=== PATIENT | female | born 1980 | race Caucasian/White ===

== ENCOUNTER 2016-03-09 16:48 | Emergency (ER) | payer OTHER ==
[2016-03-09] MEDS ORDERED: Ketorolac INJ* 60 MG/2 ML VIAL IM ONE (17:39)
[2016-03-09] MEDS ORDERED: Cyclobenzaprine TAB* 10 MG PO ONE ×2 (17:39→20:54)
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
[2016-03-09] MEDS ORDERED: traMADol TAB* 50 MG PO ONE (19:01)
--- NOTE | 2016-03-09 19:18 | RAD ---
Indication: Back pain. 5 views of lumbar spine demonstrate vertebral bodies to be normal in height. Disc spaces all well-preserved. Pedicles appear intact. IMPRESSION: No fracture of the lumbar spine is noted.
[2016-03-09] MEDS ORDERED: oxyCODONE/Acetamin 5/325 MG* TAB PO ONE ×2 (19:51→20:54)
[2016-03-09 21:22] VITALS: BP 119/64
== END 2016-03-09 21:20 | disposition home or self-care (01) ==
LOC: ED 16:48
DX: M54.30 Sciatica, unspecified side (principal); M54.5 Low back pain; R20.9 Unspecified disturbances of skin sensation; M25.562 Pain in left knee
CPT/HCPCS: 72110; 96372; 99283; A9270-GY; J1885

== ENCOUNTER 2016-03-11 12:22 | Inpatient (IN) | payer OTHER ==
[2016-03-11] MEDS ORDERED: HYDROmorphone INJ* 1 MG/ML CARPUJECT SYRINGE IM ONE (14:44)
[2016-03-11] MEDS ORDERED: Diazepam TAB(*) 5 MG PO ONE (14:46)
[2016-03-11] MEDS ORDERED: HYDROmorphone INJ* 1 MG/ML CARPUJECT SYRINGE IV ONE (16:27)
[2016-03-11] MEDS ORDERED: NS 0.9% 1000 ML* 1,000 ML IV ONE (16:27)
[2016-03-11] MEDS ORDERED: Dexamethasone IV* 4 MG/ML 5 ML VIAL (20 MG) IVPB ONE (16:27)
[2016-03-11] MEDS ORDERED: Diazepam SYRINGE* 5 MG/ML 2 ML SYRINGE (10 MG total) IV ONE (16:31)
--- NOTE | 2016-03-11 16:48 | ED ---
marvin Vaca Timothy, scribed for Shashi Buenrostro MD on 03/11/16 at 1437 . Back Pain - HPI Summary HPI Summary: David German is a 35 yo female presenting to [facility] with 10/10 back pain since 03/06/16. She denies any trauma. She was previously seen in the ED on 03/09/16, and saw her primary care provider yesterday, both of whom recommended PT as Tx. The drugs they prescribed make her drowsy, but she states they do not decrease the pain. The pain radiates from her left hip down the side of her leg. She states she was lying on her stomach today and shifted positions, which felt like a tearing in her back and caused her left leg to go numb, and she hasn't been able to feel herself urinate, although she is capable of urinating. The numbness stretches to her toes. She also is experiencing muscle spasms. These newer symptoms prompted her presentation to the ED today. She has treated herself with ice. She notes a decrease in BM since 03/09/16. She denies any other Sx. Her Hx includes Chronh's disease. She denies any EtOH or other drug use. - History of Current Complaint Chief Complaint: EDBackInjuryPain Stated Complaint: BACK PAIN Time Seen by Provider: 03/11/16 14:24 Hx Obtained From: Patient Hx Last Menstrual Period: not since before Onset/Duration: Sudden Onset, Lasting Days, Still Present Onset/Duration: Started Days Ago, Worse Since - today Timing: Constant Severity Initially: Moderate Severity Currently: Moderate Pain Intensity: 10 Pain Scale Used: 0-10 Numeric - Allergies/Home Medications Allergies/Adverse Reactions: Allergies Allergy/AdvReac Type Severity Reaction Status Date / Time No Known Allergies Allergy Verified 11/28/12 10:31 PMH/Surg Hx/FS Hx/Imm Hx Endocrine/Hematology History: Denies: Hx Diabetes, Hx Thyroid Disease Cardiovascular History: Denies: Hx Hypertension Respiratory History: Denies: Hx Asthma, Hx Chronic Obstructive Pulmonary Disease (COPD) GI History: Reports: Hx Crohn's Disease Denies: Hx Ulcer - Surgical History Surgery Procedure, Year, and Place: x1. Laparscopic surg Infectious Disease History: Denies: Hx Hepatitis, Hx Human Immunodeficiency Virus (HIV), Traveled Outside the [place] in Last 30 Days - Family History Known Family History: Positive: Cardiac Disease, Hypertension, Diabetes, Other - cancer - Social History Lives: With Family Alcohol Use: None Substance Use Type: Reports: None Smoking Status (MU): Never Smoked Tobacco Review of Systems Constitutional: Negative Eyes: Negative ENT: Negative Cardiovascular: Negative Respiratory: Negative Positive: Other - decreased BM Genitourinary: Negative Positive: Other - right hip pain radiating down leg Skin: Negative Positive: Numbness - left leg Psychological: Normal All Other Systems Reviewed And Are Negative: Yes Physical Exam - Summary Physical Exam Summary: The patient is well-nourished in mild pain distress and is somewhat uncooperative to examination secondary to pain The skin is warm and dry and skin color reflects adequate perfusion. HEENT: The head is normocephalic and atraumatic. The pupils are equal and reactive. The conjunctivae are clear and without drainage. Nares are patent and without drainage. Mouth reveals moist mucous membranes and the throat is without erythema and exudate. The external left ear is intact, right was not viewed. The left ear canal is patent and without drainage. The left tympanic membrane is intact. Neck is supple with full range of motion and non-tender. There are no carotid bruits. There is no neck vein distension. Respiratory: Chest is non-tender. Lungs are clear to auscultation and breath sounds are symmetrical and equal. Cardiovascular: Hear is regular rate and rhythm. There is no murmur or rub auscultated. There is no peripheral edema and pulses are symmetrical and equal. Abdomen: The abdomen is soft and non-tender. There are normal bowel sounds heard in all four quadrants and there is no organomegaly palpated. Musculoskeletal: There are increased muscle spasms in the lower lumbar spine sachrum on the left. She has good distal pulses. Her Achilles reflex is intact. L5S1 no weakness noted. Neurological: Patient is alert and oriented to person, place and time. The patient has symmetrical motor strength in all four extremities. Cranial nerves are grossly intact. Deep tendon reflexes are symmetrical and equal in all four extremities. Psychiatric: The patient has an appropriate affect and does not exhibit any anxiety or depression. Triage Information Reviewed: Yes Vital Signs On Initial Exam: Initial Vital Signs Resp 16 03/11/16 15:03 Vital Signs Reviewed: Yes Diagnostics - Vital Signs Vital Signs Resp 03/11/16 15:04 22 03/11/16 15:03 16 - Laboratory Lab Statement: Any lab studies that have been ordered have been reviewed, and results considered in the medical decision making process. Re-Evaluation - Re-Evaluation First Eval Re-Evaluation Time: 16:26 Change: Improved Comment: Pt has increased range of motion and is no longer moaning, but claims pain medication has not improved her condition. Back Pain Course/Dx - Course Assessment/Plan: David German is a 35 yo female presenting to [facility] with 10/ 10 back pain extending down her left hip and radiating through her leg, with some numbness. - Diagnoses Differential Diagnosis/HQI/PQRI: Positive: Herniated Disc, Sprain, Other - sciatica Provider Diagnoses: Back pain Discharge - Discharge Plan Condition: Stable Disposition: OTHER Discharge Disposition Comment: signed out to The documentation as recorded by the marvin snell Timothy accurately reflects the service I personally performed and the decisions made by me, Shashi Buenrostro MD.
[2016-03-11 17:04] LABS: Hematocrit 42 % (35-47); Hemoglobin 13.9 g/dl (12.0-16.0); Mean Corpuscular HGB Conc 33 g/dl (31-36); Mean Corpuscular Hemoglobin 31 pg (27-31); Mean Corpuscular Volume 92 fL (80-97); Mean Platelet Volume 8 um3 (7.4-10.4); Red Blood Count 4.55 10^6/ul (4.0-5.4); Red Cell Distribution Width 13 % (10.5-15); White Blood Count 6.5 10^3/ul (3.5-10.8)
[2016-03-11 17:20] LABS: Albumin 4.2 g/dL (3.2-5.2); BUN/Creatinine Ratio 14.3 (8-20); C Reactive Protein 1.15 mg/L (< 5.00); Calcium 9.2 mg/dL (8.6-10.3); EGFR African American 136.7 (>60); EGFR Non-African American 106.3 (>60); Globulin 3.2 g/dL (2-4); Potassium 3.8 mmol/L (3.5-5.0); Total Bilirubin 0.5 mg/dL (0.2-1.0); Total Protein 7.4 g/dL (6.4-8.9)
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
[2016-03-11] MEDS ORDERED: Acetaminophen TAB* 325 MG PO PRN (17:55)
[2016-03-11] MEDS ORDERED: Ketorolac INJ* 30 MG/ML 1 ML VIAL IV PUSH ONE (17:55)
[2016-03-11] MEDS ORDERED: Ondansetron INJ* 2 MG/ML VIAL IV PRN (17:55)
[2016-03-11 18:04] LABS: Erythrocyte Sed Rate 12 mm/Hr (0-14)
[2016-03-11] MEDS ORDERED: HYDROmorphone INJ* 1 MG/ML CARPUJECT SYRINGE IV SLOW PU ONE (18:08)
[2016-03-11 18:37] LABS: Urine Bilirubin Negative (Negative); Urine Glucose Negative (Negative); Urine Nitrite Negative (Negative)
--- NOTE | 2016-03-11 19:09 | RAD ---
INDICATION: Back pain and urinary retention. COMPARISON: Comparison is made with a prior x-ray study of the lumbar spine from March 09, 2016. TECHNIQUE: Axial and sagittal T1 and T2 and coronal T2-weighted images of the lumbar spine were obtained. FINDINGS: The vertebra are in normal alignment. There is a small hyperintense lesion present within the T12 vertebral body on T1 and T2-weighted images which suppresses on the inversion recovery images most consistent with a hemangioma. No other focal osseous abnormalities are seen. At the L5-S1 level there is a small midline and left posterolateral disc protrusion which does not cause mass effect on the thecal sac although does abut and slightly displace the left S1 nerve root in the lateral recess. Neural foramen appear patent on both sides. The remaining intervertebral disc appear to be within normal limits. IMPRESSION: AT THE L5-S1 LEVEL THERE IS A SMALL CENTRAL AND LEFT POSTERIOR LATERAL DISC PROTRUSION WHICH CAUSES MILD MASS EFFECT ON THE LEFT S1 NERVE IN THE LATERAL RECESS.
[2016-03-11] MEDS: oxyCODONE/Acetamin 5/325 MG* TAB PO PRN ×2 (19:32→23:54)
[2016-03-11] MEDS: Cyclobenzaprine TAB* 10 MG PO PRN (19:32)
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
[2016-03-11] MEDS: methylPREDNISolone SOD 40 MG* 1 ML VIAL IV SCH (23:56)
[2016-03-12] MEDS: HYDROmorphone INJ* 1 MG/ML CARPUJECT SYRINGE IV SLOW PU PRN ×4 (03:48→21:01)
[2016-03-12] MEDS: Cyclobenzaprine TAB* 10 MG PO PRN ×2 (03:52→18:39)
[2016-03-12 06:17] LABS: Hematocrit 41 % (35-47); Hemoglobin 13.7 g/dl (12.0-16.0); Mean Corpuscular HGB Conc 33 g/dl (31-36); Mean Corpuscular Hemoglobin 31 pg (27-31); Mean Corpuscular Volume 93 fL (80-97); Mean Platelet Volume 9 um3 (7.4-10.4); Red Blood Count 4.47 10^6/ul (4.0-5.4); Red Cell Distribution Width 13 % (10.5-15); White Blood Count 6.6 10^3/ul (3.5-10.8)
[2016-03-12] MEDS: oxyCODONE/Acetamin 5/325 MG* TAB PO PRN ×4 (06:23→22:35)
[2016-03-12 06:32] LABS: BUN/Creatinine Ratio 14.3 (8-20); Calcium 8.7 mg/dL (8.6-10.3); EGFR African American 156.7 (>60); EGFR Non-African American 121.8 (>60); Potassium 4.1 mmol/L (3.5-5.0)
[2016-03-12] MEDS: Lidocaine PATCH 5%* 1 PATCH TRANSDERM SCH (08:39)
[2016-03-12] MEDS: methylPREDNISolone SOD 40 MG* 1 ML VIAL IV SCH ×2 (10:00→22:34)
--- NOTE | 2016-03-12 12:02 | PN ---
Subjective Date of Service: 03/12/16 Interval History: Patient seen and examined at bedside. Pt states that she continue to have pain in her left leg and weakness. Pt has been able to get up to the [facility] [place] and [place]inate today. Pt states that she is having "spasms" down her left leg. She can not think of an injury to her back, but it has been bothering her for almost a week , she was seem by her chiropractor who adjusted her. Denies fever, chills, shortness of breath, chest discomfort, N/V/D. Reports left LE weakness and numbness. Family History: Unchanged from Admission Social History: Unchanged from Admission Past Medical History: Unchanged from Admission Objective Active Medications: Acetaminophen (Tylenol Tab*) 650 mg PO Q4H PRN Reason: FEVER/PAIN Cyclobenzaprine HCl (Flexeril Tab*) 10 mg PO TID PRN Reason: SPASMS Hydromorphone HCl (Dilaudid Iv*) 1 mg IV SLOW PU Q4H PRN Reason: PAIN Lidocaine (Lidoderm 5% Patch*) 1 patch TRANSDERM Q24HR MABEL Methylprednisolone Sodium Succinate (Solu-Medrol*) 40 mg IV Q12H MABEL Ondansetron HCl (Zofran Inj*) 4 mg IV Q6H PRN Reason: NAUSEA Oxycodone/Acetaminophen (Percocet 5/325 Tab*) 2 tab PO Q4H PRN Reason: PAIN Pharmacy Profile Note (Lidocaine Patch Remove*) 1 note PATCH OFF 2100 MABEL Vital Signs 03/11/16 03/11/16 03/11/16 18:16 19:00 19:06 Temperature 97.7 F 97.7 F Pulse Rate 80 80 Respiratory 19 14 14 Rate Blood Pressure 102/54 102/54 (mmHg) O2 Sat by Pulse 100 100 Oximetry 03/11/16 03/11/16 03/11/16 19:16 19:32 20:32 Temperature 98.1 F Pulse Rate 85 Respiratory 16 16 16 Rate Blood Pressure 94/54 (mmHg) O2 Sat by Pulse 97 Oximetry 03/11/16 03/11/16 03/11/16 21:26 21:32 23:38 Temperature Pulse Rate Respiratory 16 16 Rate Blood Pressure (mmHg) O2 Sat by Pulse 95 Oximetry 03/11/16 03/11/16 03/12/16 23:39 23:54 01:54 Temperature 98.8 F Pulse Rate 92 Respiratory 16 16 16 Rate Blood Pressure 101/56 (mmHg) O2 Sat by Pulse 98 Oximetry 03/12/16 03/12/16 03/12/16 03:48 03:52 04:48 Temperature 98.3 F Pulse Rate 90 Respiratory 16 18 16 Rate Blood Pressure 102/58 (mmHg) O2 Sat by Pulse 97 Oximetry 03/12/16 03/12/16 03/12/16 05:52 06:23 07:16 Temperature 98.0 F Pulse Rate 83 Respiratory 16 16 16 Rate Blood Pressure 93/58 (mmHg) O2 Sat by Pulse 100 Oximetry 03/12/16 03/12/16 03/12/16 11:00 11:05 11:19 Temperature 98.1 F Pulse Rate 82 Respiratory 20 16 16 Rate Blood Pressure 111/64 (mmHg) O2 Sat by Pulse 97 Oximetry Oxygen Devices in Use Now: None Appearance: NAD, laying in bed Eyes: No Scleral Icterus, PERRLA Ears/Nose/Mouth/Throat: NL Teeth, Lips, Gums, Mucous Membranes Moist Neck: NL Appearance and Movements; NL JVP, Trachea Midline Respiratory: Symmetrical Chest Expansion and Respiratory Effort, Clear to Auscultation Cardiovascular: NL Sounds; No Murmurs; No JVD, RRR Abdominal: NL Sounds; No Tenderness; No Distention - Bowel sounds present Extremities: No Edema Skin: No Rash or Ulcers Neurological: Alert and Oriented x 3, - - Weakness to left LE, 1st toe strength intact. Lines/Tubes/Other Access: Clean, Dry and Intact Peripheral IV - site benign Nutrition: Taking PO's Result Diagrams: 03/12/16 06:04 03/12/16 06:04 Assess/Plan/Problems-Billing Assessment: Ms. German is a 35 yo female with PMH significant for Crohn's who presents to the emergency room with complaints of left LE weakness and pain. - Patient Problems (1) Low back pain Code(s): M54.5 - LOW BACK PAIN SNOMED Code(s): 855123506 Comment: - Pt continues to have low back pain with weakness in her left LE - MRI shows - L5-S1 level a small central and left posterior lateral disc protrusion which causes mild mass effect on the left S1 nerve - Neurosurgery consult pending - Continue pain medication, steroids and physical therapy (2) Crohn's disease Code(s): K50.90 - CROHN'S DISEASE, UNSPECIFIED, WITHOUT COMPLICATIONS SNOMED Code(s): 62597468 Comment: - Stable (3) DVT prophylaxis Code(s): OPY4835 - SNOMED Code(s): 305503502 Comment: Continue SCDs (4) Full code status Code(s): Z78.9 - OTHER SPECIFIED HEALTH STATUS SNOMED Code(s): 042110422 Status and Disposition: OBV. Discharge to home when medically stable.
[2016-03-12] MEDS: Lidocaine Patch REMOVE* 1 NOTE MISC PATCH OFF SCH (21:11)
[2016-03-13] MEDS: HYDROmorphone INJ* 1 MG/ML CARPUJECT SYRINGE IV SLOW PU PRN ×3 (04:23→19:20)
[2016-03-13] MEDS: Cyclobenzaprine TAB* 10 MG PO PRN (07:50)
[2016-03-13] MEDS: Lidocaine PATCH 5%* 1 PATCH TRANSDERM SCH (07:54)
--- NOTE | 2016-03-13 07:54 | PN ---
Progress Note - Progress Note SOAP: Subjective: []Complains of pain in left leg with associated numbness and weakness Does feel sensation better Complains of numbness in perineum Objective: []Achiiles reflexes equal No effort to plantar flex or dorsiflex her left foot Minimal effort to flex quads SLR positive on left at 30 degrees Crossed SLR positive Assessment: []MRI shows a very small disc herniation at L5-S1 on the left Plan: []Her symptoms are grossly out of proportion to her radiographic findings. There is nothing to explain her weakness in her left leg I would recommend a lumbar epidural steroid injection for symptomatic relief Surgery would not be indicated at this point Full consult to follow
[2016-03-13] MEDS: methylPREDNISolone TAB* 4 MG PO SCH ×3 (09:09→21:39)
[2016-03-13] MEDS: oxyCODONE/Acetamin 5/325 MG* TAB PO PRN ×2 (09:09→15:48)
[2016-03-13] MEDS ORDERED: Magnesium Hydroxide LIQ* 30 ML UDC PO PRN (10:07)
[2016-03-13] MEDS ORDERED: Polyethylene Glycol 3350* 17 GM PACKET PO PRN (10:07)
--- NOTE | 2016-03-13 10:58 | PN ---
Subjective Date of Service: 03/13/16 Interval History: Patient seen and examined at bedside. Pt states that she continues to have pain in her left buttock and numbness down her left leg. She also reports muscle spasms. Denies fever, chills, shortness of breath, chest discomfort, N/V/D. Pt feels that she has a piriformis tear. Family History: Unchanged from Admission Social History: Unchanged from Admission Past Medical History: Unchanged from Admission Objective Active Medications: Acetaminophen (Tylenol Tab*) 650 mg PO Q4H PRN Reason: FEVER/PAIN Cyclobenzaprine HCl (Flexeril Tab*) 10 mg PO TID PRN Reason: SPASMS Hydromorphone HCl (Dilaudid Iv*) 1 mg IV SLOW PU Q4H PRN Reason: PAIN Lidocaine (Lidoderm 5% Patch*) 1 patch TRANSDERM Q24HR MABEL Magnesium Hydroxide (Milk Of Magnprakash Liq*) 30 ml PO Q6H PRN Reason: CONSTIPATION Methylprednisolone (Medrol Tab*) 4 mg PO TID MABEL Ondansetron HCl (Zofran Inj*) 4 mg IV Q6H PRN Reason: NAUSEA Oxycodone/Acetaminophen (Percocet 5/325 Tab*) 2 tab PO Q4H PRN Reason: PAIN Pharmacy Profile Note (Lidocaine Patch Remove*) 1 note PATCH OFF 2100 MABEL Polyethylene Glycol/Electrolytes (Miralax*) 17 gm PO DAILY PRN Reason: CONSTIPATION Vital Signs 03/12/16 03/12/16 03/13/16 22:35 22:53 00:35 Temperature 97.7 F Pulse Rate 82 Respiratory 16 16 16 Rate Blood Pressure 98/57 (mmHg) O2 Sat by Pulse 99 Oximetry 03/13/16 03/13/16 03/13/16 03:30 04:23 05:23 Temperature 97.9 F Pulse Rate 88 Respiratory 16 18 16 Rate Blood Pressure 102/62 (mmHg) O2 Sat by Pulse 99 Oximetry 03/13/16 03/13/16 03/13/16 07:32 07:50 08:00 Temperature 98.2 F Pulse Rate 75 Respiratory 16 16 16 Rate Blood Pressure 101/61 (mmHg) O2 Sat by Pulse 99 Oximetry Oxygen Devices in Use Now: None Appearance: NAD, laying in bed. Eyes: No Scleral Icterus, PERRLA Ears/Nose/Mouth/Throat: NL Teeth, Lips, Gums, Mucous Membranes Moist Neck: NL Appearance and Movements; NL JVP, Trachea Midline Respiratory: Symmetrical Chest Expansion and Respiratory Effort, Clear to Auscultation Cardiovascular: NL Sounds; No Murmurs; No JVD, RRR Abdominal: NL Sounds; No Tenderness; No Distention Extremities: No Edema Skin: No Rash or Ulcers Neurological: Alert and Oriented x 3, - - Unable to dorsi and plantar flex left foot, able to move left 1st toe Lines/Tubes/Other Access: Clean, Dry and Intact Peripheral IV - site benign Nutrition: Taking PO's Result Diagrams: 03/12/16 06:04 03/12/16 06:04 Assess/Plan/Problems-Billing Assessment: Ms. German is a 35 yo female with PMH significant for Crohn's who presents to the emergency room with complaints of left LE weakness and pain. - Patient Problems (1) Low back pain Code(s): M54.5 - LOW BACK PAIN SNOMED Code(s): 188485887 Comment: - Pt continues to have low back pain with weakness in her left LE - MRI shows - L5-S1 level a small central and left posterior lateral disc protrusion which causes mild mass effect on the left S1 nerve - Neurosurgery consult, appreciate input. Pt doesn't need surgery at this time - Continue pain medication and steroids - Anesthesia consult pending (2) Crohn's disease Code(s): K50.90 - CROHN'S DISEASE, UNSPECIFIED, WITHOUT COMPLICATIONS SNOMED Code(s): 07731884 Comment: - Stable (3) DVT prophylaxis Code(s): BPR5035 - SNOMED Code(s): 441728903 Comment: Continue SCDs (4) Full code status Code(s): Z78.9 - OTHER SPECIFIED HEALTH STATUS SNOMED Code(s): 450357198 Status and Disposition: Inpatient. Discharge to home when medically stable.
[2016-03-13] MEDS ORDERED: methylPREDNISolone ACETATE 80* 80 MG/ML 1 ML VIAL ONE (14:10)
[2016-03-13] MEDS ORDERED: Lidocaine 1% INJ* 10 MG/ML 30 ML SDV ONE (14:11)
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
[2016-03-13] MEDS: Lidocaine Patch REMOVE* 1 NOTE MISC PATCH OFF SCH (21:53)
[2016-03-13] MEDS ORDERED: Iohexol 300* (CONTRAST) 10 ML SDV IV ONE (23:42)
[2016-03-14] MEDS: HYDROmorphone INJ* 1 MG/ML CARPUJECT SYRINGE IV SLOW PU PRN ×4 (00:28→21:31)
[2016-03-14] MEDS: oxyCODONE/Acetamin 5/325 MG* TAB PO PRN ×3 (00:29→22:59)
--- NOTE | 2016-03-14 07:48 | RAD ---
HISTORY: Plexitis, numbness to left lower extremity COMPARISONS: MRI dated March 11, 2016 TECHNIQUE: Multiple contiguous axial CT images are obtained of the pelvis, with coronal and sagittal multiplanar reconstructions, with oral and intravenous contrast administration. FINDINGS: BONE DENSITY: Normal. BONES: There is no displaced fracture. JOINTS: There is no arthropathy. MUSCULATURE: Unremarkable ALIGNMENT: There is no dislocation. SOFT TISSUES: Unremarkable. CT is relatively insensitive to intrinsic pathology of the lumbosacral plexus; however, there is no obvious extrinsic compression or mass along the expected course of the femoral and sciatic nerves bilaterally OTHER FINDINGS: None. IMPRESSION: NO ACUTE PATHOLOGY. CT IS RELATIVELY INSENSITIVE TO INTRINSIC PATHOLOGY OF THE LUMBOSACRAL PLEXUS; HOWEVER, THERE IS NO OBVIOUS EXTRINSIC COMPRESSION OR MASS ALONG THE EXPECTED COURSE OF THE FEMORAL AND SCIATIC NERVES BILATERALLY. IF CLINICALLY INDICATED, MRI WITH MORE SENSITIVE
--- NOTE | 2016-03-14 07:53 | PN ---
Progress Note - Progress Note SOAP: Subjective: [This is a 35 year old female with left lower extremity pain, weakness and diminished sensation found to have a small L5-S1 disc herniation not likely to be causing the severity of her symptoms. She continues to experience pain in the left lower extremity primarily with movements. ] Objective: [ Vital Signs: Temp Pulse Resp BP Pulse Ox 97.9 F 84 16 108/57 97 03/14/16 03:30 03/14/16 03:30 03/14/16 03:30 03/14/16 03:30 03/14/16 03:30 General: Alert and oriented. Neuro: Achilles and patellar reflexes intact. Strength testing creates low back to buttock pain on the left. Minimal effort to move left lower extremity. ] Assessment: [Small HNP L5-S1 not able to explain the patient's severity and extent of symptoms.] Plan: [1. No neurosurgical intervention indicated at this time.]
[2016-03-14] MEDS: Lidocaine PATCH 5%* 1 PATCH TRANSDERM SCH (08:02)
[2016-03-14] MEDS: methylPREDNISolone TAB* 4 MG PO SCH ×3 (08:11→22:20)
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
--- NOTE | 2016-03-14 17:19 | RAD ---
INDICATION: Myelitis. COMPARISON: Comparison is made with a prior CT of the cervical spine from February 27, 2011. TECHNIQUE: Axial T2 and sagittal T1 and T2 and coronal T2-weighted images of the cervical spine were obtained. FINDINGS: The vertebra are in normal alignment. No significant focal bony abnormality or fracture is seen. The craniocervical junction is within normal limits. The spinal cord is normal in shape and signal intensity. At the C5-C6 level there is a mild broad-based disc bulge. No significant spinal canal narrowing is present. There is mild neural foraminal narrowing on the left side. The remaining intervertebral discs appear to be within normal limits. IMPRESSION: MILD DEGENERATIVE DISC DISEASE AT THE C5-C6 LEVEL.
--- NOTE | 2016-03-14 17:22 | RAD ---
INDICATION: Myelitis, left leg weakness. COMPARISON: Comparison is made with a prior CT of the brain from February 27, 2011. TECHNIQUE: Sagittal T1, axial T1, T2, susceptibility, FLAIR and diffusion weighted images were obtained. FINDINGS: The ventricles, cisterns and sulci appear to be within normal limits. No significant focal abnormality or mass effect is seen. No areas of restricted diffusion are present. There is no evidence for infarct or hemorrhage. There is a nodule in the inferior portion of the left maxillary sinus measuring 1.2 cm in size most consistent with a mucous retention cyst or polyp. The visualized portion of the paranasal sinuses and mastoid air cells otherwise appear clear. IMPRESSION: NEGATIVE EXAM.
--- NOTE | 2016-03-14 17:29 | RAD ---
INDICATION: Myelitis, numbness left lower extremity. COMPARISON: There are no prior studies available for comparison. TECHNIQUE: Axial and sagittal T1 and T2-weighted images of the dorsal spine were obtained. FINDINGS: The vertebra are in normal alignment. No significant focal bony abnormality or fracture is seen. The spinal cord is normal in shape and signal intensity. No significant disc bulge or herniation is seen. The spinal canal is patent at all levels. Neural foramen appear patent on both sides at all levels. IMPRESSION: NEGATIVE EXAM.
--- NOTE | 2016-03-14 18:24 | CONS ---
NEUROLOGY FOLLOWUP CONSULTATION: DATE OF FOLLOWUP: 03/14/16 LOCATION: She is an inpatient in room 353. HOSPITALIST: Diana Leung NP CHIEF COMPLAINT: Painful numb and weak leg. INTERVAL HISTORY: Since yesterday, David notes some improvement in movement of her left foot. It s till feels pretty numb as well as pins and needles sensation diffusely in the left leg all the way t o just below the hip. The pain is a little bit better, but it is still pretty severe particularly i n the posterolateral upper leg and buttock. When she does not move around, it is reasonably comfort able. She does not have any sensory symptoms in the right leg at this time and is not having any pr oblems emptying her bladder. She has no symptoms in her upper extremities. MEDICATIONS: Reviewed and she remains on: 1. Methylprednisolone 4 mg p.o. t.i.d. 2. Oxycodone 5/325 hours p.r.n. 3. Hydromorphone 1 mg IV q.4 hours p.r.n. pain. 4. Cyclobenzaprine 10 mg p.o. t.i.d. p.r.n. muscle spasms. 4. Lidoderm patch q.24 hours. PHYSICAL EXAM: She is afebrile, blood pressure most recently 106/65. Straight leg raising on the right produces some crossed discomfort in the left leg at about 30 to 40 degrees. Straight leg raising on the left produces pain in the posterolateral proximal leg at abou t 15 degrees. Sensory exam in the right leg is intact to light touch, pin, and vibration as well as proprioception . Proprioception and vibration are diminished in the left foot, there is some vibration at the ankl e. She has a dull pin perception in left leg diffusely other than some preservation in the medial u pper leg. There appears to be a sensory level to pin just around T11 or T10 in the left side of the abdomen, which is normal on the right side of the abdomen. Light touch is absent in the left dista l lower extremity. Reflexes are brisk in the upper extremities, knees, and normal at the ankles. She has adductor refl exes bilaterally, but no crossed adductor reflex. Plantars are flexor bilaterally. She has trace movement in dorsiflexion and flexion of the left ankle, that is without pain. She doll s not have antigravity strength to the left quadriceps and hip flexor, but she has a lot of pain villanueva iting mobility at that location. She is alert and seems to be in good spirits and is quite conversa nt and has an intact memory and fluent language. DIAGNOSTIC STUDIES/LAB DATA: There is no laboratory data to review. She has had a CT of the pelvis done, on 03/13/16, interpreted as normal, with and without contrast. IMPRESSION: Possible hemimyelitis but again, this may be just a herniated disk with some psychogeni c overlay. We will await the results of her MR imaging. Lab work has been sent for viral plexitis as well. With her intact reflexes, however, that seems unlikely. If she continues to have weakness next week, I will consider doing electrodiagnostic studies. I will follow up after the MR imaging. [id number]/[facility] #: [id number]
--- NOTE | 2016-03-14 18:24 | PN ---
Subjective Date of Service: 03/14/16 Interval History: Patient seen and examined at bedside. Pt states that she continues to have numbness in her left leg, reports some sensation in bottom of foot. Pt reports relief of "pressure" in her left buttock when she pulls her knee towards her chest. Pt states that she has not moved her bowels in a few days. Family History: Unchanged from Admission Social History: Unchanged from Admission Past Medical History: Unchanged from Admission Objective Active Medications: Acetaminophen (Tylenol Tab*) 650 mg PO Q4H PRN Reason: FEVER/PAIN Cyclobenzaprine HCl (Flexeril Tab*) 10 mg PO TID PRN Reason: SPASMS Hydromorphone HCl (Dilaudid Iv*) 1 mg IV SLOW PU Q4H PRN Reason: PAIN Lidocaine (Lidoderm 5% Patch*) 1 patch TRANSDERM Q24HR [facility] Magnesium Hydroxide (Milk Of Magnprakash Liq*) 30 ml PO Q6H PRN Reason: CONSTIPATION Methylprednisolone (Medrol Tab*) 4 mg PO TID [facility] Ondansetron HCl (Zofran Inj*) 4 mg IV Q6H PRN Reason: NAUSEA Oxycodone/Acetaminophen (Percocet 5/325 Tab*) 2 tab PO Q4H PRN Reason: PAIN Pharmacy Profile Note (Lidocaine Patch Remove*) 1 note PATCH OFF 2100 [facility] Polyethylene Glycol/Electrolytes (Miralax*) 17 gm PO DAILY PRN Reason: CONSTIPATION Vital Signs 03/13/16 03/13/16 03/13/16 19:12 19:20 20:20 Temperature 98.0 F Pulse Rate 94 Respiratory 16 18 16 Rate Blood Pressure 110/53 (mmHg) O2 Sat by Pulse 99 Oximetry 03/13/16 03/13/16 03/13/16 21:50 22:09 23:11 Temperature 99.2 F 98.2 F Pulse Rate 81 88 Respiratory 16 16 17 Rate Blood Pressure 116/70 119/70 (mmHg) O2 Sat by Pulse 100 100 Oximetry 03/14/16 03/14/16 03/14/16 02:29 03:30 07:29 Temperature 97.9 F 98.4 F Pulse Rate 84 78 Respiratory 16 16 16 Rate Blood Pressure 108/57 98/57 (mmHg) O2 Sat by Pulse 97 100 Oximetry 03/14/16 03/14/16 03/14/16 11:48 12:38 14:38 Temperature 98.3 F Pulse Rate 84 Respiratory 16 18 16 Rate Blood Pressure 106/65 (mmHg) O2 Sat by Pulse 99 Oximetry 03/14/16 03/14/16 03/14/16 15:28 15:40 16:28 Temperature 98.3 F Pulse Rate 87 Respiratory 18 16 16 Rate Blood Pressure 111/61 (mmHg) O2 Sat by Pulse 97 Oximetry Oxygen Devices in Use Now: None Appearance: NAD, Laying in bed Eyes: No Scleral Icterus, PERRLA Ears/Nose/Mouth/Throat: NL Teeth, Lips, Gums, Mucous Membranes Moist Neck: NL Appearance and Movements; NL JVP, Trachea Midline Respiratory: Symmetrical Chest Expansion and Respiratory Effort, Clear to Auscultation Cardiovascular: NL Sounds; No Murmurs; No JVD, RRR Abdominal: NL Sounds; No Tenderness; No Distention - Bowel sounds present Extremities: No Edema Skin: No Rash or Ulcers Neurological: Alert and Oriented x 3, - - Pt continues to have numbness in her left LE, good 1st toe strength, unable to dorsi or plantar flex Lines/Tubes/Other Access: Clean, Dry and Intact Peripheral IV - site benign Result Diagrams: 03/12/16 06:04 03/12/16 06:04 Assess/Plan/Problems-Billing Assessment: Ms. German is a 35 yo female with PMH significant for Crohn's who presents to the emergency room with complaints of left LE weakness and pain. - Patient Problems (1) Low back pain Code(s): M54.5 - LOW BACK PAIN SNOMED Code(s): 683956496 Comment: - Pt continues to have left buttock and leg pain with weakness in her left LE - MRI shows - L5-S1 level a small central and left posterior lateral disc protrusion which causes mild mass effect on the left S1 nerve - MRI brain and spin - negative, mild DDD C5-6 - Neurosurgery consult, appreciate input. Pt doesn't need surgery at this time - Continue pain medication and steroids - Anesthesia consult, appreciate input - Neuology consult, appreciate input (2) Crohn's disease Code(s): K50.90 - CROHN'S DISEASE, UNSPECIFIED, WITHOUT COMPLICATIONS SNOMED Code(s): 56885041 Comment: - Stable (3) DVT prophylaxis Code(s): UXT6405 - SNOMED Code(s): 328298198 Comment: Continue SCDs (4) Full code status Code(s): Z78.9 - OTHER SPECIFIED HEALTH STATUS SNOMED Code(s): 704853629 Status and Disposition: Inpatient. Discharge to home when medically stable.
[2016-03-14] MEDS: Lidocaine Patch REMOVE* 1 NOTE MISC PATCH OFF SCH (22:20)
[2016-03-15] MEDS: HYDROmorphone INJ* 1 MG/ML CARPUJECT SYRINGE IV SLOW PU PRN ×3 (07:19→22:00)
[2016-03-15] MEDS: oxyCODONE/Acetamin 5/325 MG* TAB PO PRN ×3 (07:23→20:33)
[2016-03-15] MEDS: Lidocaine PATCH 5%* 1 PATCH TRANSDERM SCH (09:05)
[2016-03-15] MEDS: methylPREDNISolone TAB* 4 MG PO SCH (09:08)
[2016-03-15] MEDS: Cyclobenzaprine TAB* 10 MG PO PRN (09:11)
--- NOTE | 2016-03-15 11:11 | PN ---
Subjective Date of Service: 03/15/16 Interval History: Pt feels about the same. She thinks she has slightly increased ability to wiggle her toes on the L. She states she still has "pins and needles" in the L lower leg and a feeling of muscle cramping the the L upper lateral/posterior thigh and buttock. She states she has been using the leg poultry sexer to force dorsi and plantar flexion and she states with that movement she has a pulling sensation in the calf and posterior thigh. If she pulls her leg to her chest from the knee she states a feeling of relief of "pressure" in her thigh. Still no BM-she states she had prunes and butter this AM. She states if she has not had a BM by tomorrow AM she will take something for the constipation. Objective Active Medications: Acetaminophen (Tylenol Tab*) 650 mg PO Q4H PRN PRN Reason: FEVER/PAIN Cyclobenzaprine HCl (Flexeril Tab*) 10 mg PO TID PRN PRN Reason: SPASMS Last Admin: 03/15/16 09:11 Dose: 10 mg Hydromorphone HCl (Dilaudid Iv*) 1 mg IV SLOW PU Q4H PRN PRN Reason: PAIN Last Admin: 03/15/16 07:19 Dose: 1 mg Lidocaine (Lidoderm 5% Patch*) 1 patch TRANSDERM Q24HR [facility] Last Admin: 03/15/16 09:05 Dose: 1 patch Magnesium Hydroxide (Milk Of Magnesia Liq*) 30 ml PO Q6H PRN PRN Reason: CONSTIPATION Methylprednisolone (Medrol Tab*) 4 mg PO TID [facility] Last Admin: 03/15/16 09:08 Dose: Not Given Ondansetron HCl (Zofran Inj*) 4 mg IV Q6H PRN PRN Reason: NAUSEA Oxycodone/Acetaminophen (Percocet 5/325 Tab*) 2 tab PO Q4H PRN PRN Reason: PAIN Last Admin: 03/15/16 07:23 Dose: 2 tab Oxycodone/Acetaminophen (Percocet 5/325 Tab*) 1 tab PO Q4H PRN PRN Reason: PAIN Pharmacy Profile Note (Lidocaine Patch Remove*) 1 note PATCH OFF 2100 [facility] Last Admin: 03/14/16 22:20 Dose: 1 note Polyethylene Glycol/Electrolytes (Miralax*) 17 gm PO DAILY PRN PRN Reason: CONSTIPATION Vital Signs 03/14/16 03/14/16 03/14/16 11:48 12:38 14:38 Temperature 98.3 F Pulse Rate 84 Respiratory 16 18 16 Rate Blood Pressure 106/65 (mmHg) O2 Sat by Pulse 99 Oximetry 03/14/16 03/14/16 03/14/16 15:28 15:40 16:28 Temperature 98.3 F Pulse Rate 87 Respiratory 18 16 16 Rate Blood Pressure 111/61 (mmHg) O2 Sat by Pulse 97 Oximetry 03/14/16 03/14/16 03/14/16 19:35 21:31 22:30 Temperature 98.5 F Pulse Rate 93 Respiratory 16 16 16 Rate Blood Pressure 105/53 (mmHg) O2 Sat by Pulse 98 Oximetry 03/14/16 03/14/16 03/14/16 22:31 22:59 23:00 Temperature 97.8 F Pulse Rate 79 Respiratory 16 16 16 Rate Blood Pressure 99/57 (mmHg) O2 Sat by Pulse 99 Oximetry 03/15/16 03/15/16 03/15/16 00:59 03:59 07:11 Temperature 98.0 F 98.1 F Pulse Rate 75 87 Respiratory 16 16 16 Rate Blood Pressure 101/56 110/67 (mmHg) O2 Sat by Pulse 92 100 Oximetry 03/15/16 03/15/16 03/15/16 07:19 07:23 08:00 Temperature Pulse Rate Respiratory 20 18 18 Rate Blood Pressure (mmHg) O2 Sat by Pulse Oximetry 03/15/16 03/15/16 03/15/16 08:19 09:11 09:14 Temperature Pulse Rate Respiratory 16 16 18 Rate Blood Pressure (mmHg) O2 Sat by Pulse Oximetry Oxygen Devices in Use Now: None Appearance: Young female sitting up in bed, NAD Eyes: No Scleral Icterus Ears/Nose/Mouth/Throat: Mucous Membranes Moist Respiratory: Symmetrical Chest Expansion and Respiratory Effort, Clear to Auscultation Cardiovascular: NL Sounds; No Murmurs; No JVD, RRR, No Edema Abdominal: - - BS+ soft, NT, ND Extremities: No Clubbing, Cyanosis Skin: No Rash or Ulcers, No Nodules or Sclerosis Neurological: Alert and Oriented x 3, - - able to wiggle toes and slightly dorsiflex the foot, she is unable to lift her L LE off the bed Result Diagrams: 03/12/16 06:04 03/12/16 06:04 Assess/Plan/Problems-Billing Ms. German is a 35 yo female with PMHx significant for Crohn's disease who presents to the emergency room with complaints of left LE weakness and pain. - Patient Problems (1) Left leg weakness Current Visit: Yes Status: Acute Code(s): R29.898 - OTH SYMPTOMS AND SIGNS INVOLVING THE MUSCULOSKELETAL SYSTEM SNOMED Code(s): 064838136 Comment: Etiology is not clear. It seems she is not much better. Imaging of the brain/C-spine/T-spine/L-spine were essentially negative except for the small L5-S1 disc herniation with mild impingement on the S1 nerve root. Will order PT. Await further recommendations from neurology. ? myelitis vs plexitis per neuruology. May need EMG studies. (2) Low back pain Current Visit: Yes Status: Acute Code(s): M54.5 - LOW BACK PAIN SNOMED Code(s): 292122417 Comment: Continue prn dilaudid though should be working towards tapering the dose. No further imaging needed at this time. (3) Crohn's disease Current Visit: Yes Status: Acute Code(s): K50.90 - CROHN'S DISEASE, UNSPECIFIED, WITHOUT COMPLICATIONS SNOMED Code(s): 85470040 Comment: Stable without symptoms. (4) DVT prophylaxis Current Visit: Yes Status: Acute Code(s): FSF6537 - SNOMED Code(s): 633427389 Comment: Continue SCDs (5) Full code status Current Visit: Yes Status: Acute Code(s): Z78.9 - OTHER SPECIFIED HEALTH STATUS SNOMED Code(s): 894272728 Status and Disposition: Inpatient. Discharge to home when medically stable.
[2016-03-15 14:55] LABS: CSF Glucose 66 mg/dL (40-70)
[2016-03-15 15:01] LABS: Body Fluid Appearance Clear
[2016-03-15 15:17] LABS: BF RBC Count #1 1; BF RBC Count #2 1; BF WBC Count #1 1; BF WBC Count #2 1; RBC counts within 6%? Yes; WBC counts within 15%? Yes
[2016-03-15 15:24] LABS: Body Fluid Total Cells Counted 37
[2016-03-15 15:44] LABS: Herpes Simplex Virus I IgG AB Positive (Negative); Herpes Simplex Virus II IgG AB Negative (Negative)
[2016-03-15] MEDS: Heparin VIAL(*) 5000 UNITS/ML VIAL (FIVE THOUSAND) SUBCUT SCH (22:00)
[2016-03-15] MEDS: Lidocaine Patch REMOVE* 1 NOTE MISC PATCH OFF SCH (22:01)
[2016-03-16] MEDS: oxyCODONE/Acetamin 5/325 MG* TAB PO PRN ×3 (00:34→14:01)
--- NOTE | 2016-03-16 01:55 | PM ---
[facility] NOTE: DATE OF VISIT/DICTATION: 03/15/16 HISTORY OF PRESENT ILLNESS: I had the pleasure of seeing Ms. David German in consultation today. Ms. German is a 35-year-old female who presents for lower extremity weakness and numbness on the left side. She is currently being evaluated by Dr. Hernandez for L5-S1 mild lumbar disk herniation and subsequently by Dr. Hudson for new onset of lower extremity neuro deficits. It is unclear as to the exact etiology of her deficits at this point. Therefore, lumbar puncture was suggested to rule out any CSF abnormalities. The patient denies recent history of coagulopathies. She notes no use of anticoagulants currently. She notes no history of recent fever, chills, or infection or use of antibiotics for the treatment of infections. The risks and benefits of the procedure were discussed with the patient who verbalized understanding and elected to proceed. The risks including but not limited to bleeding, bruising, infection, nerve injury were discussed. Consent was signed. DESCRIPTION OF PROCEDURE: Time-out was performed. The patient's back was prepped and draped in a usual sterile fashion. A 25-gauge 1.5 inch needle was used to instill a total of 3 cc of 1% lidocaine plain into the skin and subcutaneous tissues. The L3-L4 interspace was approximated. ChloraPrep was performed over this area. Subsequently, a 25-gauge Pencan needle along with a 20-gauge introducer was used to access the intrathecal space. Crystal clear free flowing CSF was aspirated from the intrathecal space and sent to the lab for further testing as requested. The patient tolerated the procedure well. There were no paresthesias. There was no neuraxial heme. There were no additional focal neurological deficits. This site was subsequently dressed with a Band-Aide and the patient did not have any further complications. She tolerated the remainder of the procedure well. She will follow up with me as needed. [id number]/[facility] #: [id number] [facility]PITALSampson
[2016-03-16 07:34] LABS: Body Fluid WBC 1 /mcL
[2016-03-16] MEDS: HYDROmorphone INJ* 1 MG/ML CARPUJECT SYRINGE IV SLOW PU PRN ×3 (07:44→21:49)
[2016-03-16] MEDS: Lidocaine PATCH 5%* 1 PATCH TRANSDERM SCH (09:17)
[2016-03-16] MEDS: Heparin VIAL(*) 5000 UNITS/ML VIAL (FIVE THOUSAND) SUBCUT SCH ×2 (09:18→21:48)
[2016-03-16 15:28] LABS: Herpes Simplex 1&2 IgM IFA Negative (Negative)
--- NOTE | 2016-03-16 17:06 | PN ---
Subjective Date of Service: 03/16/16 Interval History: Pt is feeling about the same. She states the burning discomfort is worse today. She has no increased movement in the foot or leg. Objective Active Medications: Acetaminophen (Tylenol Tab*) 650 mg PO Q4H PRN PRN Reason: FEVER/PAIN Cyclobenzaprine HCl (Flexeril Tab*) 10 mg PO TID PRN PRN Reason: SPASMS Last Admin: 03/15/16 09:11 Dose: 10 mg Heparin Sodium (Porcine) (Heparin Vial(*)) 5,000 units SUBCUT Q12HR [facility] Last Admin: 03/16/16 09:18 Dose: 5,000 units Hydromorphone HCl (Dilaudid Iv*) 1 mg IV SLOW PU Q4H PRN PRN Reason: PAIN Last Admin: 03/16/16 16:24 Dose: 1 mg Lidocaine (Lidoderm 5% Patch*) 1 patch TRANSDERM Q24HR [facility] Last Admin: 03/16/16 09:17 Dose: 1 patch Magnesium Hydroxide (Milk Of Magnprakash Liq*) 30 ml PO Q6H PRN PRN Reason: CONSTIPATION Ondansetron HCl (Zofran Inj*) 4 mg IV Q6H PRN PRN Reason: NAUSEA Oxycodone/Acetaminophen (Percocet 5/325 Tab*) 1 tab PO Q4H PRN PRN Reason: PAIN Last Admin: 03/16/16 14:01 Dose: 1 tab Pharmacy Profile Note (Lidocaine Patch Remove*) 1 note PATCH OFF 2100 [facility] Last Admin: 03/15/16 22:01 Dose: 1 note Polyethylene Glycol/Electrolytes (Miralax*) 17 gm PO DAILY PRN PRN Reason: CONSTIPATION Vital Signs 03/15/16 03/15/16 03/15/16 17:46 19:54 20:00 Temperature 98.2 F Pulse Rate 87 Respiratory 18 16 16 Rate Blood Pressure 106/57 (mmHg) O2 Sat by Pulse 100 Oximetry 03/15/16 03/15/16 03/15/16 20:33 22:00 22:33 Temperature Pulse Rate Respiratory 18 20 18 Rate Blood Pressure (mmHg) O2 Sat by Pulse Oximetry 03/15/16 03/15/16 03/16/16 23:00 23:58 00:34 Temperature 97.9 F Pulse Rate 71 Respiratory 18 16 18 Rate Blood Pressure 107/62 (mmHg) O2 Sat by Pulse 99 Oximetry 03/16/16 03/16/16 03/16/16 03:47 07:34 07:44 Temperature 98.2 F 98.4 F Pulse Rate 80 83 Respiratory 17 16 18 Rate Blood Pressure 99/73 103/53 (mmHg) O2 Sat by Pulse 99 98 Oximetry 03/16/16 03/16/16 03/16/16 08:00 08:44 09:17 Temperature Pulse Rate Respiratory 18 18 18 Rate Blood Pressure (mmHg) O2 Sat by Pulse Oximetry 03/16/16 03/16/16 03/16/16 11:17 11:21 12:30 Temperature 98.2 F Pulse Rate 91 75 Respiratory 18 16 16 Rate Blood Pressure 96/55 110/66 (mmHg) O2 Sat by Pulse 100 100 Oximetry 03/16/16 03/16/16 03/16/16 14:01 15:49 16:24 Temperature 98.2 F Pulse Rate 82 Respiratory 18 16 18 Rate Blood Pressure 115/65 (mmHg) O2 Sat by Pulse 99 Oximetry Oxygen Devices in Use Now: None Appearance: Young female sitting up in bed, NAD Eyes: No Scleral Icterus Ears/Nose/Mouth/Throat: Mucous Membranes Moist Respiratory: Symmetrical Chest Expansion and Respiratory Effort, Clear to Auscultation Cardiovascular: NL Sounds; No Murmurs; No JVD, RRR, No Edema Abdominal: NL Sounds; No Tenderness; No Distention Extremities: No Clubbing, Cyanosis Skin: No Rash or Ulcers, No Nodules or Sclerosis Neurological: Alert and Oriented x 3 Result Diagrams: 03/12/16 06:04 03/12/16 06:04 Microbiology and Other Data: Microbiology 03/15/16 14:30 CSF Gram Stain (Tube 3) - Final Cerebral Spinal Fluid CSF Culture - Preliminary No Growth Day 1 Assess/Plan/Problems-Billing Ms. German is a 35 yo female with PMHx significant for Crohn's disease who presents to the emergency room with complaints of left LE weakness and pain. - Patient Problems (1) Left leg weakness Current Visit: Yes Status: Acute Code(s): R29.898 - OTH SYMPTOMS AND SIGNS INVOLVING THE MUSCULOSKELETAL SYSTEM SNOMED Code(s): 029045804 Comment: Etiology is not clear. Essentially no improvement. LP done yesterday is unrevealing. Continue pain control. Try gabapentin 100mg at bedtime. Continue PT. Maybe home tomorrow with home PT, hospital bed and bedside commode. Will touch base with Dr. Hudson about any further testing. (2) Low back pain Current Visit: Yes Status: Acute Code(s): M54.5 - LOW BACK PAIN SNOMED Code(s): 824052099 Comment: Continue prn dilaudid-will change to oral as the plan is to get her home soon. (3) Crohn's disease Current Visit: Yes Status: Acute Code(s): K50.90 - CROHN'S DISEASE, UNSPECIFIED, WITHOUT COMPLICATIONS SNOMED Code(s): 94110755 Comment: Stable without symptoms. (4) DVT prophylaxis Current Visit: Yes Status: Acute Code(s): KXS9772 - SNOMED Code(s): 523207629 Comment: Continue SCDs (5) Full code status Current Visit: Yes Status: Acute Code(s): Z78.9 - OTHER SPECIFIED HEALTH STATUS SNOMED Code(s): 064215716 Status and Disposition: likely d/c home tomorrow.
--- NOTE | 2016-03-16 21:29 | CONS ---
NEUROLOGY FOLLOWUP NOTE: DATE OF FOLLOWUP: 03/16/16 LOCATION: Inpatient, room 353. HOSPITALIST: Dr. Almaraz. CHIEF COMPLAINT: Left leg weakness and numbness and pain. INTERVAL HISTORY: Since yesterday, David notes perhaps a little more movement in her left foot. Other than that, no changes. She has a lot of pain when she attempts to move the left leg, remaining confined to the proximal posterior leg and hip. The left leg still has numbness and tingling and pins and needles sensation. No symptoms on the right. She says she was able to transfer to a chair and sit up for half an hour. She states she cannot put any weight on her left leg, however. No new symptoms. MEDICATIONS: Reviewed and she remains on: 1. Heparin subcutaneous 5000 units q.12 hours. 2. Hydromorphone 1 mg IV q.4 hours p.r.n. pain. 3. Oxycodone/APAP 5/325 one p.o. q.4 hours p.r.n. 4. Lidoderm patch 5% q.24 hours. PHYSICAL EXAMINATION: She remains afebrile, blood pressure 103/53, heart rate 80 and regular. Straight leg raising is positive on the right at 60 degrees with contralateral pain near the left buttock. Straight leg raising is positive on the left at just about 20 to 30 degrees. Neurologically, she has normal function of the upper extremities with good strength. No facial weakness and speech is clear without dysarthria. Motor exam in the right leg seems really normal, but she gets pain in the left posterior leg when she attempts to raise it. She has trace movement with ankle plantar and dorsiflexion with brief twitchy types of movements. I cannot get her to really move the proximal left leg much at all and she says it is painful. She remains with brisk reflexes at the knees and a normal reflex at the right ankle. Left ankle reflex is trace. Plantar responses remain flexor. On her exam, her left ankle reflex seems harder to get today. Other than that, she continues with diffuse sensory loss and weakness, which is not explained by her lumbar disk abnormality. DIAGNOSTIC STUDIES/LAB DATA: Spinal fluid results were reviewed. She has only 1 white blood cell and 1 red cell and normal protein and glucose. Gram stain was negative. I would like to get contrasted MRI's of her spine just to make sure we are not missing a lesion on non-contrasted scans. I will consider doing EMG nerve conduction testing this coming week as it would have been 10 days or more since the onset of symptoms. [id number]/[facility] #: [id number] AGGIE
[2016-03-16] MEDS: Gabapentin CAP(*) 100 MG PO SCH (21:49)
[2016-03-16] MEDS: HYDROmorphone TAB* 2 MG PO PRN (23:09)
[2016-03-16] MEDS: Cyclobenzaprine TAB* 10 MG PO PRN (23:09)
--- NOTE | 2016-03-17 04:05 | CONS ---
NEUROLOGY FOLLOWUP NOTE: DATE OF CONSULT: 03/15/16 LOCATION: She is in room 353. HOSPITALIST: Yecenia Almaraz DO. CHIEF COMPLAINT: Leg pain and weakness. INTERVAL HISTORY: Since yesterday, David notes no significant changes. Other than that, she does have numbness in her right foot. She still has a same amount of pain more or less in the left proximal lower extremity, particularly posteriorly. She states that the strength is no better, but then she was able to take a shower last night using a walker. She states she really did not put any weight on her left leg. She still feels numb and pins and needle sensation diffusely in the left leg all the way up to the hip. She has no problems urinating, but she is constipated. MEDICATIONS: Consist of: 1. Oxycodone/APAP 5/325 one p.o. q.4 hours p.r.n. pain. 2. Lidocaine patch 1 q.24 hours. 3. Hydromorphone 1 mg IV q.4 hours p.r.n. pain. 4. Cyclobenzaprine 10 mg p.o. t.i.d. p.r.n. spasms. 5. Methylprednisolone was stopped as she felt it was making her too jittery, giving her insomnia and her last dose was yesterday afternoon. PHYSICAL EXAM: She remains afebrile, blood pressure running about 110/70, heart rate running in the 70s and 80s and regular. Neurologically, straight leg is positive in the left in about 30 degrees. She has good movement of the right leg. Upper extremity movement is normal and nonpainful. Speech is clear. She is able to wiggle the toes and dorsiflex and plantar flex the left ankle without pain. She is able to tense the muscles of the left leg, but not lift it off the bed. She seems to have a normal strength in the right leg proximally and distally. Sensory exam is normal for diminished pin discrimination in the left leg diffusely, to the left thigh laterally, but with preservation of pin now in the medial thigh. Vibration is lost at the toes, but normal at the ankles on the left and normal on the right side. Reflexes remain brisk at the knees, grade 2 right ankle, possibly slightly hypoactive, left ankle reflex is present. Plantar has remained flexor. She remains alert and oriented to person, place, and time with intact recent and remote memory. LABORATORY DATA: Includes MRIs of the cervical and thoracic spine yesterday without contrast which were normal. I reviewed and I agree. There was some minor disk abnormalities in the cervical spine at C5-6, but no cord abnormalities. MRI of the brain without contrast yesterday was also interpreted as normal. I reviewed the images and I agreed. IMPRESSION: A herniated lumbar disk with diffuse pain and weakness, which is unexplained by the disk itself. So far, there is no evidence of myelitis radiographically. We recommend a lumbar puncture at this point to look for pleocytosis, elevated protein, or other markers of inflammation. In addition, I would recommend antibody studies for Lyme and HSV, PCR I and II. I have discussed with Dr. Almaraz who is going to contact her anesthesia colleagues to see if they could help us in this regard. I have explained this to the patient and she is in agreement with the plan. [id number]/[facility] #: [id number] MTDD
[2016-03-17] MEDS: HYDROmorphone TAB* 2 MG PO PRN ×2 (07:42→21:45)
[2016-03-17] MEDS: Heparin VIAL(*) 5000 UNITS/ML VIAL (FIVE THOUSAND) SUBCUT SCH ×2 (09:25→21:44)
[2016-03-17 09:56] LABS: BUN/Creatinine Ratio 27.3 (8-20); Calcium 9.7 mg/dL (8.6-10.3); EGFR African American 159.9 (>60); EGFR Non-African American 124.4 (>60)
[2016-03-17] MEDS: HYDROmorphone INJ* 1 MG/ML CARPUJECT SYRINGE IV SLOW PU PRN (10:25)
[2016-03-17] MEDS ORDERED: Gadoteridol* (CONTRAST) 279.3 MG/ML 10 ML IV ONE (11:10)
--- NOTE | 2016-03-17 12:16 | RAD ---
Indication: Left lower extremity weakness. Image sequences: 13 mL of ProHance was injected intravenously and sagittal and axial T1-weighted fat saturated images were obtained. Correlation is made with a prior MRI the cervical spine performed to 317. The cervical spinal cord demonstrates no evidence of abnormally enhancing lesions. No focal masses are identified. IMPRESSION: No abnormally enhancing lesions are noted in the cervical spine.
--- NOTE | 2016-03-17 12:29 | RAD ---
Indication: Myelopathy, left leg numbness and weakness. 13 mL of ProHance was injected intravenously and sagittal and coronal as well as axial T1-weighted fat-suppressed images were obtained after contrast injection. Correlation is made with prior noncontrast study performed on March 14, 2016. There is no evidence of abnormally enhancing lesions in the thoracic spinal cord. Disc spaces all well well-preserved. No evidence of epidural enhancing lesions are also identified. IMPRESSION: No abnormally enhancing lesions are noted in the thoracic spinal cord or in the thoracic epidural space.
--- NOTE | 2016-03-17 12:42 | RAD ---
INDICATION: Low back pain with left lower extremity numbness COMPARISON: Noncontrast MRI lumbar spine dated March 11, 2016 TECHNIQUE: After the intravenous administration of 13 mL ProHance axial and sagittal T1-weighted images were acquired. FINDINGS: There is no abnormal enhancement of the lumbar spine or surrounding soft tissue structures. The spinal cord terminates at the L1 level. There are no intrinsic abnormalities of the visualized cord. The lower thoracic and lumbar vertebrae are normally aligned. Vertebral body height is adequately maintained and bony signal is within normal limits. On the sagittal view images the intervertebral discs maintain appropriate T2 signal and adequate maintenance of height. Axial view images: Less otherwise specified below there is no significant central canal stenosis or neural foraminal stenosis. T12-L1:There is no significant central canal or neural foraminal stenoses. L1-L2: There is no significant central canal or neural foraminal stenoses. L2-L3: There is no significant central canal or neural foraminal stenoses. L3-L4: There is no significant central canal or neural foraminal stenoses. L4-L5: There is no significant central canal or neural foraminal stenoses. L5-S1: Again seen is midline and left of midline posterior lateral disc protrusion causing mild central canal stenosis and left neural foraminal stenosis. IMPRESSION: L5/S1 disc protrusion causing a mild degree of central canal and left neural foraminal stenosis unchanged from the March 11, 2016 MRI. There is no abnormal enhancement associated with this appearance.
[2016-03-17] MEDS ORDERED: Diazepam TAB(*) 5 MG PO PRN (14:14)
--- NOTE | 2016-03-17 17:55 | PN ---
Subjective Date of Service: 03/17/16 Interval History: Pt is feeling ok. She has no improvement in her symptoms. She is anxious to go home. She is trying to use less narcotic pain medication as she feels "drugged. " Objective Active Medications: Acetaminophen (Tylenol Tab*) 650 mg PO Q4H PRN PRN Reason: FEVER/PAIN Diazepam (Valium Tab(*)) 5 mg PO Q8H PRN PRN Reason: pain, spasm Gabapentin (Neurontin Cap(*)) 100 mg PO BEDTIME MABEL Last Admin: 03/16/16 21:49 Dose: Not Given Heparin Sodium (Porcine) (Heparin Vial(*)) 5,000 units SUBCUT Q12HR MABEL Last Admin: 03/17/16 09:25 Dose: 5,000 units Hydromorphone HCl (Dilaudid Tab*) 2 mg PO Q4H PRN PRN Reason: PAIN Last Admin: 03/17/16 07:42 Dose: 2 mg Hydromorphone HCl (Dilaudid Iv*) 1 mg IV SLOW PU Q6H PRN PRN Reason: PAIN Last Admin: 03/17/16 10:25 Dose: 1 mg Magnesium Hydroxide (Milk Of Magnesia Liq*) 30 ml PO Q6H PRN PRN Reason: CONSTIPATION Ondansetron HCl (Zofran Inj*) 4 mg IV Q6H PRN PRN Reason: NAUSEA Polyethylene Glycol/Electrolytes (Miralax*) 17 gm PO DAILY PRN PRN Reason: CONSTIPATION Vital Signs 03/16/16 03/16/16 03/16/16 20:03 21:45 21:49 Temperature 97.9 F Pulse Rate 75 Respiratory 14 16 16 Rate Blood Pressure 115/58 (mmHg) O2 Sat by Pulse 96 Oximetry 03/16/16 03/16/16 03/16/16 22:49 23:09 23:11 Temperature 97.6 F Pulse Rate 73 Respiratory 16 16 16 Rate Blood Pressure 101/60 (mmHg) O2 Sat by Pulse 98 Oximetry 03/17/16 03/17/16 03/17/16 01:09 03:29 07:31 Temperature 98.4 F 97.9 F Pulse Rate 83 76 Respiratory 16 18 16 Rate Blood Pressure 108/60 97/53 (mmHg) O2 Sat by Pulse 100 100 Oximetry 03/17/16 03/17/16 03/17/16 07:42 08:00 10:25 Temperature Pulse Rate Respiratory 16 16 16 Rate Blood Pressure (mmHg) O2 Sat by Pulse Oximetry 03/17/16 03/17/16 11:52 15:32 Temperature 98.0 F 98.0 F Pulse Rate 92 86 Respiratory 16 16 Rate Blood Pressure 104/61 122/61 (mmHg) O2 Sat by Pulse 99 98 Oximetry Oxygen Devices in Use Now: None Appearance: Young female lying in bed, NAD Eyes: No Scleral Icterus Ears/Nose/Mouth/Throat: Mucous Membranes Moist Respiratory: Symmetrical Chest Expansion and Respiratory Effort, Clear to Auscultation Cardiovascular: NL Sounds; No Murmurs; No JVD, RRR, No Edema Abdominal: NL Sounds; No Tenderness; No Distention Extremities: No Clubbing, Cyanosis Skin: No Rash or Ulcers, No Nodules or Sclerosis Neurological: Alert and Oriented x 3, - - pt can wiggle toes but can not dorsi/ plantar flex or raise leg off bed Result Diagrams: 03/12/16 06:04 03/17/16 09:27 Microbiology and Other Data: Microbiology 03/15/16 14:30 CSF Gram Stain (Tube 3) - Final Cerebral Spinal Fluid CSF Culture - Preliminary No Growth Day 1 Assess/Plan/Problems-Billing Ms. German is a 35 yo female with PMHx significant for Crohn's disease who presents to the emergency room with complaints of left LE weakness and pain. - Patient Problems (1) Left leg weakness Current Visit: Yes Status: Acute Code(s): R29.898 - OTH SYMPTOMS AND SIGNS INVOLVING THE MUSCULOSKELETAL SYSTEM SNOMED Code(s): 429196245 Comment: Etiology is not clear. Essentially no improvement. ? conversion disorder. Pt seems responsive to this theory but does not believe this is the only cause of her symptoms. She wishes to get home to try alternative therapies such as massage, accupuncture and possibly chiropractic work. She will continue with PT at home. Plan for d/c home tomorrow if we can get assistive devices in place. (2) Low back pain Current Visit: Yes Status: Acute Code(s): M54.5 - LOW BACK PAIN SNOMED Code(s): 271088055 Comment: Continue prn dilaudid-reduce dose to help with groggy feeling. (3) Crohn's disease Current Visit: Yes Status: Acute Code(s): K50.90 - CROHN'S DISEASE, UNSPECIFIED, WITHOUT COMPLICATIONS SNOMED Code(s): 91327468 Comment: Stable without symptoms. (4) DVT prophylaxis Current Visit: Yes Status: Acute Code(s): IOR5634 - SNOMED Code(s): 671797083 Comment: Continue SCDs (5) Full code status Current Visit: Yes Status: Acute Code(s): Z78.9 - OTHER SPECIFIED HEALTH STATUS SNOMED Code(s): 377361247 Status and Disposition: d/c home tomorrow.
[2016-03-17 19:54] LABS: Lyme Disease IgG Ab WB Negative (Negative)
--- NOTE | 2016-03-17 20:09 | PN ---
NEUROLOGY FOLLOWUP NOTE: DATE OF FOLLOWUP: 03/17/16 LOCATION: She is an inpatient at [facility]. HOSPITALIST: Yecenia Almaraz DO CHIEF COMPLAINT: Leg pain, weakness, and numbness. INTERVAL HISTORY: Since yesterday, David has noted a little bit of more movement of able to flex and extend her left foot. She feels pain diffusely, but mainly in the posterior proximal left lower extremity. She still has some numbness up to her hip. She had MRIs of the cervical, thoracic, and lumbar spine today with contrast. It shows a small disk protrusion in her lumbar spine, but otherwise all are negative. Her serologies were HS2 and all negative. 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 Lyme disease serology is equivocal and western blots are pending. PHYSICAL EXAM: She remains afebrile. Blood pressure is running about 100 to 110 systolic over 50 to 60 diastolic. Heart rate 76 and regular. Straight leg raising on the right is positive contralaterally at 60 degrees. It is positive on the left at about 20 degrees. She wiggles the toes in the left foot, although she does not move the left leg. Reflexes remain normal in both legs. IMPRESSION: Disk herniation. 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 I discussed the psychogenic component with her and she agrees she is under tremendous stress. She was seeing a therapist, but her therapist became injured and she has not seen one in a couple of months. She is going to see a mental health provider here in the hospital. She also feels that her OXYCODONE is making her very dysphoric. She finds that hydromorphone does resolve her pain, but not OXYCODONE. In addition, she is not finding cyclobenzaprine to be very helpful at all. I recommend trying some diazepam particularly for the back spasms, but also for any possible anxiety component. ____ mental health to see her as well. [id number]/[facility] #: [id number] AGGIE
[2016-03-17] MEDS: Gabapentin CAP(*) 100 MG PO SCH (21:38)
[2016-03-18] MEDS: HYDROmorphone TAB* 2 MG PO PRN ×2 (01:43→16:36)
[2016-03-18] MEDS: Heparin VIAL(*) 5000 UNITS/ML VIAL (FIVE THOUSAND) SUBCUT SCH (10:11)
[2016-03-18 11:59] VITALS: BP 94/63
--- NOTE | 2016-03-18 12:24 | PN ---
Subjective Date of Service: 03/18/16 Interval History: Pt is feeling about the same. She states that the physical therapist told her to try sitting with her pelvis tipped forward to relieve pressure and she believes this has helped her pain. She is ready to go home. Objective Active Medications: Acetaminophen (Tylenol Tab*) 650 mg PO Q4H PRN PRN Reason: FEVER/PAIN Diazepam (Valium Tab(*)) 5 mg PO Q8H PRN PRN Reason: pain, spasm Gabapentin (Neurontin Cap(*)) 100 mg PO BEDTIME MABLE Last Admin: 03/17/16 21:38 Dose: Not Given Heparin Sodium (Porcine) (Heparin Vial(*)) 5,000 units SUBCUT Q12HR MABEL Last Admin: 03/18/16 10:11 Dose: 5,000 units Hydromorphone HCl (Dilaudid Iv*) 1 mg IV SLOW PU Q6H PRN PRN Reason: PAIN Last Admin: 03/17/16 10:25 Dose: 1 mg Hydromorphone HCl (Dilaudid Tab*) 1 mg PO Q4H PRN PRN Reason: PAIN Last Admin: 03/18/16 01:43 Dose: 1 mg Magnesium Hydroxide (Milk Of Magnesia Liq*) 30 ml PO Q6H PRN PRN Reason: CONSTIPATION Ondansetron HCl (Zofran Inj*) 4 mg IV Q6H PRN PRN Reason: NAUSEA Polyethylene Glycol/Electrolytes (Miralax*) 17 gm PO DAILY PRN PRN Reason: CONSTIPATION Vital Signs 03/17/16 03/17/16 03/17/16 15:32 20:00 20:07 Temperature 98.0 F 98.5 F Pulse Rate 86 91 Respiratory 16 16 16 Rate Blood Pressure 122/61 97/57 (mmHg) O2 Sat by Pulse 98 98 Oximetry 03/17/16 03/17/16 03/17/16 21:40 21:45 22:54 Temperature 98.1 F Pulse Rate 86 Respiratory 18 16 18 Rate Blood Pressure 110/60 (mmHg) O2 Sat by Pulse 99 Oximetry 03/17/16 03/18/16 03/18/16 23:45 01:43 04:03 Temperature 98.4 F Pulse Rate 81 Respiratory 16 18 20 Rate Blood Pressure 103/56 (mmHg) O2 Sat by Pulse 100 Oximetry 03/18/16 03/18/16 07:40 11:44 Temperature 98.6 F 97.8 F Pulse Rate 78 92 Respiratory 16 16 Rate Blood Pressure 111/69 94/63 (mmHg) O2 Sat by Pulse 99 100 Oximetry Oxygen Devices in Use Now: None Appearance: Young female lying in bed, NAD Eyes: No Scleral Icterus Ears/Nose/Mouth/Throat: Mucous Membranes Moist Respiratory: Symmetrical Chest Expansion and Respiratory Effort, Clear to Auscultation Cardiovascular: NL Sounds; No Murmurs; No JVD, RRR Abdominal: NL Sounds; No Tenderness; No Distention Extremities: No Clubbing, Cyanosis Skin: No Rash or Ulcers, No Nodules or Sclerosis Neurological: Alert and Oriented x 3 Result Diagrams: 03/12/16 06:04 03/17/16 09:27 Microbiology and Other Data: Microbiology 03/15/16 14:30 CSF Gram Stain (Tube 3) - Final Cerebral Spinal Fluid CSF Culture - Preliminary No Growth Day 1 Assess/Plan/Problems-Billing Ms. German is a 35 yo female with PMHx significant for Crohn's disease who presents to the emergency room with complaints of left LE weakness and pain. - Patient Problems (1) Left leg weakness Current Visit: Yes Status: Acute Code(s): R29.898 - OTH SYMPTOMS AND SIGNS INVOLVING THE MUSCULOSKELETAL SYSTEM SNOMED Code(s): 502287864 Comment: Etiology is not clear. Essentially no improvement. ? conversion disorder. Pt seems responsive to this theory but does not believe this is the only cause of her symptoms. Will plan on D/C home today. She will continue with PT at home and in addition will try massage and accupuncture. (2) Low back pain Current Visit: Yes Status: Acute Code(s): M54.5 - LOW BACK PAIN SNOMED Code(s): 503569752 Comment: Pt with herniated disc at L5-S1 with mild mass effect on the S1 nerve root. Continue dilaudid 1mg q4hr prn pain. (3) Crohn's disease Current Visit: Yes Status: Acute Code(s): K50.90 - CROHN'S DISEASE, UNSPECIFIED, WITHOUT COMPLICATIONS SNOMED Code(s): 69483374 Comment: Stable without symptoms. (4) DVT prophylaxis Current Visit: Yes Status: Acute Code(s): DOR2381 - SNOMED Code(s): 589317782 Comment: Continue SCDs (5) Full code status Current Visit: Yes Status: Acute Code(s): Z78.9 - OTHER SPECIFIED HEALTH STATUS SNOMED Code(s): 637557754 Status and Disposition: d/c home
--- NOTE | 2016-03-18 15:13 | CONS ---
PSYCHIATRIC CONSULTATION DATE OF CONSULT: 03/18/2016. Patient is in the Short Stay Unit, bed 353. REQUESTING PHYSICIAN: Dr. Triston Hudson. CONSULTATION QUESTION: Rule out conversion disorder. HISTORY OF PRESENT ILLNESS: Ms. German was admitted to the hospital at the end of February with complaint of onset of weakness and numbness of the left leg. She has had a thorough medical and neurological work-up for this and no cause has been found for the weakness and numbness of the leg. Then pattern of numbness has no anatomical explanation. This has raised suspicious for the possibility of conversion disorder. On interview of the patient, she is well-engaged, pleasant and collaborative. On review of history of psychiatric symptoms, she does state that she did have a depression, ranging out into psychotic features due to sleep deprivation, after the of her first son, who is now age 11. She has never been psychiatrically hospitalized. She has been seeing psychotherapist Asia Macias at a local clinic. She reports her current stressor being primarily this difficulty with the leg, leading to limitations in providing care to the 11-year-old son who has epilepsy and autism spectrum disorder. She reports currently she is not feeling depressed. She does not endorse any depressive or manic symptoms. She does report having had a run of manic symptoms stemming from hormone therapy for endometriosis in her teenage years, but never received psychiatric care for that. She does report that she is a little upset at our consideration of the possibility of conversion disorder as an explanation of what is going on with her. She does state that she understands that about two nights ago she was on both IV and p.o. Dilaudid, along with Flexeril, and that under the influence of that combination of medications she was feeling short of breath and was quite upset and tearful and suspects that perhaps her presentation in that way gave the false impression of her as having psychological features consistent with conversion disorder. She does state that she understands the basis for consideration of conversion disorder in general, and is open to bearing that in mind on her differential. She does state though that the leg is getting better , partly through following advice of her physical therapist here. She attributes this to instruction in how to sit properly and get up from bed properly to reduce stress at the L5-S1 disk herniation that has been identified. She does state that she understands that imaging has not indicated that this is impinging on a nerve and so is unlikely to be contributing to her current neurological symptoms. On review of other psychiatric symptoms, she denies ever any history of OCD or psychosis. She denies ever any history of PTSD symptoms, but does state that she was somewhat traumatized growing up by her schizophrenic step-dad who used to do bizarre and disturbing things, like taxiderming her pet rabbit and presenting it to her. She reports no particular difficulties with anxiety and no history of panic attacks. She denies any history of eating disorder. PAST PSYCHIATRIC HISTORY: The patient is currently in psychotherapy with therapist Asia Macias. She has no history of psychiatric hospitalization. She has no history of suicidality. MENTAL STATUS EXAMINATION: This is a pleasant young lady looking her age with grooming and hygiene appropriate to the setting. She makes good eye contact. She has speech with regular rate, rhythm and volume. She is alert and oriented to person, place, time and situation. She reports her mood as weak due to this current medical difficulty. Her affect is bright and she frequently smiles and laughs appropriately through the course of the interview. She has good insight and judgment. Her impulse control is intact. She has a linear and goal directed thought process. She shows no gross deficits of memory, attention or cognition. She denies any auditory or visual hallucinations or paranoid ideation. She denies any suicidal or homicidal ideation. MEDICAL CONDITIONS: The patient has Crohn's disease, has a history of endometriosis. Also, reports diastasis recti from section delivery of her children. SUBSTANCE ABUSE HISTORY: The patient denies any abuse of alcohol or illicit substances. She does report using cannabis oil in what she tells me is a [facility] approved treatment for Crohn's disease. She denies any abuse of tobacco. She states that she never uses caffeine in any form. SOCIAL HISTORY: She reports having done well in school, and having met all of her developmental milestones. She has had some difficulties in her romantic relationships; for example, the father of her first child left her immediately after the of that child because he could not bear the responsibility and this was, in fact, a factor in her development of depression at that time. She is the mother of three; the 11-year-old son mentioned previously and a boy and a girl ages 4 and 7 who are both doing well. She is currently in a committed heterosexual relationship and denies any troubles in that relationship. She lives in [place] with her mother and children. 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 She attended college in [place] and obtained a degree in photography. PHYSICAL EXAM, LABORATORY VALUES, ETC: Please refer to the ongoing documentation of this on the medical floor. Pertinent findings investigating the cause of her left leg weakness and numbness are reportedly entirely negative , including imaging results as regards to identification of impingements on nerves that could explain her neurological presentation. ASSESSMENT AND RECOMMENDATIONS: Per my discussion with Dr Hudson, the principal basis for suspicion for conversion disorder is the inconsistency of reported pattern of numbness with anatomical distributions of known potential causes. Ms. German does not present with any co- occurring psychiatric symptoms that would be supportive of a diagnosis of conversion disorder. She does not report any sort of mood disorder or other psychiatric symptoms that could be considered to be a likely precursor to development of conversion disorder. She is under a fair amount of stress she says, and does acknowledge that this could be contributing in part to the way that things have developed with this event that left her with weakness and numbness in the leg, but she does not think that her symptoms could have a psychogenic etiology. I have supported her thought that it may behoove her to ask Dr. Hudson if there is a neurology clinic to which he could refer her for another opinion if this difficulty with the leg does not continue to resolve, as it has begun to. She does not give any indication of a need for psychiatric admission or change in her psychiatric plan of care. She does report that she will continue to work with her outpatient therapist and will be complying with aftercare plans from the medical floor. I therefore do not have any specific recommendations for specific interventions for her at this time. DIAGNOSIS: No psychiatric diagnosis. [id number]/[facility] #: [id number] M[facility] IMOGEN[facility] BASSETT HOSPITALSampson
[2016-03-18 15:50] LABS: CSF Oligoclonal Bands 0 bands; Oligoclonal Proteins Interpret 0 bands (<4); Serum Oligoclonal Bands 0 bands
[2016-03-18 16:03] LABS: HSV 1 PCR, CSF Negative (Negative); HSV 2 PCR, CSF Negative (Negative)
--- NOTE | 2016-03-18 22:46 | DS ---
DISCHARGE SUMMARY: DATE OF ADMISSION: 03/11/16 DATE OF DISCHARGE: 03/18/16 PRIMARY CARE PROVIDER: Dr. Lacy. PRINCIPAL DIAGNOSES: 1. Left leg weakness and pain of unclear etiology though suspected conversion disorder. 2. Small L5-S1 herniated disk with mild impingement on S1 nerve root. SECONDARY DIAGNOSES: 1. Crohn's disease. 2. Endometriosis. DISCHARGE MEDICATIONS: 1. Valium 5 mg p.o. q.8 hours p.r.n. pain/spasm. 2. Dilaudid 1 mg p.o. q.4 hours p.r.n. pain. HOSPITAL COURSE: Ms. German is a 35-year-old female, who presented to the emergency room on 03/11/16 with complaints of back pain, left leg weakness, and leg pain. The patient's symptoms started on prior to admission when she noted pain radiating from her lumbar back down her buttock into her left leg. The symptoms progressively worsened throughout the weekend. She presented to the ER and was given Percocet, Flexeril, and diagnosed with sciatic nerve pain and sent to follow up with the primary. The patient saw her primary and was going to start physical therapy. Unfortunately, she was sitting on chair when the phone rang, she turned quickly and she felt as if something tore or popped in her low back. At that point, the patient could not stand and stated that she had numbness in her left leg. She called 911 and was brought back to the emergency room. The patient was admitted for low back pain , left leg weakness, and pain in the left leg. The patient had an extensive workup for the source of her pain. The patient started with lumbar spine MRI without contrast on 03/11/16 that revealed a L5-S1 small central and left posterolateral disk protrusion, which causes mild mass effect on the left S1 nerve root in the lateral recess. The patient was seen in consultation by Dr. Hernandez, who felt her symptoms are grossly out of proportion to her radiographic findings. He felt that there was nothing to explain the weakness in her left leg. It was recommended to consider lumbar epidural steroid injection for symptomatic relief. The patient was then seen in consultation by Dr. Nagy, who also was concerned that her symptoms were so out of proportion to the findings on her MRI. He did not feel that epidural steroid injection is warranted and he instead asked Dr. Hudson from Neurology to consult on the patient. Dr. Hudson then saw the patient in consultation and felt that this was possibly hemimyelitis but also possibly just a herniated disk with some psychogenic overlay. It was recommended to obtain MRI imaging of the thoracic and cervical spine as well. This was performed on 03/14/16, both without contrast. These were essentially negative exams; however, the cervical spine did indicate mild degenerative disk disease at the C5-[address] Hudson followed up again on 03/15/16. At that time, he recommended a lumbar puncture to be obtained for evaluation of possible demyelinating disorder. At the time of his reconsultation, it was felt that myelitis was unlikely as there was no evidence radiographically. The patient did undergo lumbar puncture on 03/15/16. The patient's lumbar puncture was essentially unrevealing and there was no clear indication that there is a demyelinating process ongoing. To complete the workup, the patient did undergo cervical, thoracic, and lumbar spine MRI with contrast. No abnormally enhancing lesions were noted in any of the areas. Essentially the patient's workup has been unrevealing. Further into the workup that we have gotten seems as if this may in fact be conversion disorder. The patient did admit to being under tremendous amount of stress. She had previously been working with the therapist but has not seen her therapist in quite some time. The patient is receptive to this idea; however, is not completely convinced that this is the only cause of her symptoms. At this point, the patient is ready for discharge home. She will have VNS set up for PT at home. Additionally, she will be set up with hospital bed and commode and walker. The patient agrees with this plan. She is going to attempt to have massage and acupuncture performed as well to see if this helps with her symptoms. Essentially, during the course of the hospitalization, she got to the point where she was only able to wiggle her toes. The patient continues to have pain in her low back and down her leg. She had been using narcotics during her course of her hospitalization. She states that she felt very loopy on them. We have settled to trying Dilaudid 1 mg p.o. q.4 hours p.r.n. severe pain. The patient will take this very sparingly. Additionally, Valium has been provided for spasms. FOLLOWUP CONCERNS: The patient is being discharged to home today, 03/18/16. She is to follow up with Dr. Lacy in the next 4 to 7 days. Activity level is as tolerated. Diet is regular. CONDITION ON DISCHARGE: Stable. TIME SPENT: Thirty-five minutes was spent discharging this patient. CC: Dr. Lacy* [id number]/CPS #: [id number] MTDD
== END 2016-03-18 17:45 | disposition home health service (06) | DRG 756 ==
LOC: ED 12:22 → SSU 17:21 → OBSVTOIN 03-12 19:29
PROVIDERS: ADMIT Internal Medicine; ATTEND Hospitalist
PROC: 009U3ZX Drainage of Spinal Canal, Percutaneous Approach, Diagnostic (ICD-10-PCS; principal; 2016-03-15)
DX: F44.4 Conversion disorder with motor symptom or deficit (principal); K50.90 Crohn's disease, unspecified, without complications; M51.27 Other intervertebral disc displacement, lumbosacral region; M41.9 Scoliosis, unspecified; M50.322 Other cervical disc degeneration at C5-C6 level; R29.898 Other symptoms and signs involving the musculoskeletal system; R20.0 Anesthesia of skin; K59.00 Constipation, unspecified; R20.2 Paresthesia of skin; M62.830 Muscle spasm of back; N80.9 Endometriosis, unspecified; M79.605 Pain in left leg; Z82.61 Family history of arthritis; Z83.49 Family history of other endocrine, nutritional and metabolic diseases; Z83.3 Family history of diabetes mellitus; Z82.49 Family history of ischemic heart disease and other diseases of the circulatory system; Z80.9 Family history of malignant neoplasm, unspecified
CPT/HCPCS: 36415; 70551; 72141; 72142; 72146; 72147; 72148; 72149; 72193; 80048; 80053; 81003; 82945; 83916; 84157; 85025; 85610; 85652; 86140; 86617; 86618; 86644; 86645; 86694; 86695; 86696; 87070; 87205; 87529; 89051; 94760; A9270-GY; A9579; G0378; G8978-GP-CL; G8979-GP-CI; G8980-GP-CL; J1040; J1100; J1170; J1644; J2920; J3360; J7509; Q9967

== ENCOUNTER 2017-02-15 02:39 | Emergency (ER) | payer MEDICAID ==
[2017-02-15 03:15] LABS: Urine Appearance Cloudy; Urine Blood Negative (Negative); Urine Color Yellow; Urine Ketones Negative (Negative); Urine Protein Negative (Negative); Urine Specific Gravity 1.019 (1.010-1.030); Urine Urobilinogen Negative (Negative)
[2017-02-15] MEDS ORDERED: NS 0.9% 1000 ML* 1,000 ML IV ONE (04:09)
[2017-02-15] MEDS ORDERED: cefTRIAXone(*) 1 GM in NS 0.9% 50 ML* 50 ML IVPB ONE ×4 (04:10)
[2017-02-15] MEDS ORDERED: Ketorolac INJ* 30 MG/ML 1 ML VIAL IV PUSH ONE ×2 (04:10)
[2017-02-15] MEDS ORDERED: Ondansetron INJ* 2 MG/ML VIAL ONE ×2 (04:17)
[2017-02-15] MEDS ORDERED: Ondansetron INJ* 2 MG/ML VIAL IV ONE (04:21)
[2017-02-15 04:59] LABS: ABS Basophils 0 10^3/ul (0-0.2); ABS Eosinophils 0.1 10^3/ul (0-0.6); ABS Lymphocytes 1.3 10^3/ul (1.0-4.8); ABS Monocytes 0.5 10^3/ul (0-0.8); ABS Neutrophils 4.6 10^3/ul (1.5-7.7); ABS Nucleated RBC 0 10^3/ul; Eosinophil % 0.8 % (0-6); Hematocrit 42 % (35-47); Hemoglobin 14.2 g/dl (12.0-16.0); Lymphocyte % 19.9 % (25-47); Mean Corpuscular HGB Conc 34 g/dl (31-36); Mean Corpuscular Hemoglobin 31 pg (27-31); Mean Corpuscular Volume 93 fL (80-97); Mean Platelet Volume 9 um3 (7.4-10.4); Nucleated Red Blood Cells % 0.1; Platelet Count 205 10^3/ul (150-450); Red Blood Count 4.53 10^6/ul (4.0-5.4); Red Cell Distribution Width 13 % (10.5-15); White Blood Count 6.5 10^3/ul (3.5-10.8)
[2017-02-15 05:09] LABS: EGFR Non-African American 109.8 (>60)
--- NOTE | 2017-02-15 06:42 | ED ---
Jorge Vaca Abhishek, scribed for Elisabeth Washington MD on 02/15/17 at 0413 . GI/ HPI - HPI Summary HPI Summary: This patient is a 36 year old F presenting to [facility] accompanied by mother with a chief complaint of back pain since 12 hours ago. Pt states she may have UTI and have pertinent PMHx of multiple separate cases of UTI's in the past. The patient rates the pain 2/10 in severity. Symptoms aggravated by nothing. Symptoms alleviated by nothing. Patient reports nauseas, dry heaving chills, vomited (1 time), blurry vision, SOB (intermittent), and burning urination. Patient denies fevers, diarrhea, SANTIAGO, double vision, ear ache, neck pain, chest pain, hematuria, vaginal discharge, vaginal bleeding,rashes, bruises, anxiety, depression, and edema LE. - History of Current Complaint Chief Complaint: EDFlankPain Time Seen by Provider: 02/15/17 02:50 Stated Complaint: FLANK PAIN Hx Obtained From: Patient, Family/Lard [employer]er Onset/Duration: Started Hours Ago - 12 hours ago Timing: Constant, Lasting Hours - 12 hours ago Severity: Mild Current Severity: Mild Pain Intensity: 2 Associated Signs and Symptoms: Positive: Back Pain, Weakness, Nausea, Vomiting, Chills, Abdominal Pain, Other: - blurry vision, SOB, and burning urinary sensation. Negative SANTIAGO, ear ache, neck pain, vaginal discharge, vaginal bleeding , rashes, anxiety, depression, and edema LE. Negative: Bruising, Diarrhea, Fever, Hematuria, Chest Pain - Additional Pertinent History Primary Care Physician: ROYAL - Allergy/Home Medications Allergies/Adverse Reactions: Allergies Allergy/AdvReac Type Severity Reaction Status Date / Time No Known Allergies Allergy Verified 11/28/12 10:31 PMH/Surg Hx/FS Hx/Imm Hx Endocrine/Hematology History: Denies: Hx Diabetes, Hx Thyroid Disease Cardiovascular History: Denies: Hx Hypertension, Hx Pacemaker/ICD Respiratory History: Denies: Hx Asthma, Hx Chronic Obstructive Pulmonary Disease (COPD) GI History: Reports: Hx Crohn's Disease Denies: Hx Ulcer History: Denies: Hx Renal Disease Sensory History: Denies: Hx Hearing Aid Psychiatric History: Denies: Hx Panic Disorder - Surgical History Surgery Procedure, Year, and Place: ENDOMETRIOSIS & 2009 Infectious Disease History: No Infectious Disease History: Denies: Hx Hepatitis, Hx Human Immunodeficiency Virus (HIV), Traveled Outside the [place] in Last 30 Days - Family History Known Family History: Positive: Cardiac Disease, Hypertension, Diabetes, Other - cancer - Social History Alcohol Use: None Substance Use Type: Reports: None Smoking Status (MU): Never Smoked Tobacco Review of Systems Negative: Fever Eyes: Negative Negative: Ear Ache Negative: Chest Pain Gastrointestinal: Other Positive: Abdominal Pain, Vomiting, Nausea. Negative: Diarrhea Genitourinary: Other - Negative vaginal bleeding Negative: burning, discharge, hematuria Musculoskeletal: Other - Negative neck pain Positive: Myalgia - back pain. Negative: Edema Negative: Rash, Bruising Negative: Anxious, Depressed All Other Systems Reviewed And Are Negative: No Physical Exam - Summary Physical Exam Summary: Appearance: Alert, conversive, nontoxic appearing Skin: Warm, dry, no mottling, no rashes, no contusions HEENT: EOMI, PERRL, moist mucous membranes Neck: No masses on the neck, supple Respiratory: Clear to auscultation, breath sounds present, no rales, no rhonchi , no wheezes Cardiovascular: RRR, pulses are symmetrical in both lower and upper extremities Abdomen: Lower abd tenderness Left flank tenderness and mild abd pain Bowel Sounds: Present Musculoskeletal: No CVA tenderness, no obvious deformity, moving all extremities in a grossly normal manner Neurological: A&Ox3, CN II-XII Intact, moving all extremities symmetrically Psychiatric: Normal affect and mood Triage Information Reviewed: Yes Vital Signs On Initial Exam: Initial Vitals Temp Pulse Resp BP Pulse Ox 97.3 F 92 18 104/60 98 02/15/17 02:41 02/15/17 02:41 02/15/17 02:41 02/15/17 02:41 02/15/17 02:41 Vital Signs Reviewed: Yes Diagnostics - Vital Signs Vital Signs Temp Pulse Resp BP Pulse Ox 02/15/17 03:01 88 103/64 100 02/15/17 03:00 85 100 02/15/17 02:58 110/66 02/15/17 02:41 97.3 F 92 18 104/60 98 - Laboratory Lab Results: Lab Results 02/15/17 Range/Units 02:57 Urine Color Yellow Urine Appearance Cloudy Urine pH 7.0 (5-9) Ur Specific Page 1.019 (1.010-1.030) Urine Protein Negative (Negative) Urine Ketones Negative (Negative) Urine Blood Negative (Negative) Urine Nitrate Negative (Negative) Urine Bilirubin Negative (Negative) Urine Urobilinogen Negative (Negative) Ur Leukocyte Esterase Trace H (Negative) Urine WBC (Auto) 1+(6-10/hpf) H (Absent) Urine RBC (Auto) Trace(0-2/hpf) (Absent) Ur Squamous Epith Cells Present H (Absent) Urine Bacteria 1+ H (Absent) Urine Glucose Negative (Negative) Result Diagrams: 02/15/17 04:35 02/15/17 06:00 Lab Statement: Any lab studies that have been ordered have been reviewed, and results considered in the medical decision making process. GIGU Course/Dx - Course Course Of Treatment: Pt is presenting to the [facility] with a c/o of back pain and abd pain. Pertinent PMHx includes Crohn's disease and previous multiple seperate occurances of UTI's. Patient reports nauseas, dry heaving, chills, vomited (1 time), blurry vision, SOB (intermittent), and burning urination. Pt will be discharged home with a dx of UTI. - Diagnoses Provider Diagnoses: UTI (urinary tract infection) Discharge - Discharge Plan Condition: Stable Disposition: HOME Referrals: Triston Lacy MD [Primary Care Provider] - The documentation as recorded by the Jorge snell Abhishek accurately reflects the service I personally performed and the decisions made by Padmini yañez Norma, MD.
[2017-02-15 06:55] VITALS: BP 104/62
== END 2017-02-15 06:55 | disposition home or self-care (01) ==
LOC: ED 02:39
DX: N39.0 Urinary tract infection, site not specified (principal); K50.90 Crohn's disease, unspecified, without complications; Z87.440 Personal history of urinary (tract) infections
CPT/HCPCS: 36415; 80053; 81003; 81015; 83605; 85025; 87086; 96361; 96374; 96375; 99284; J0696; J1885; J2405